=== PATIENT | female | born 1960 | race Caucasian/White ===

== ENCOUNTER 2024-04-02 10:56 | Outpatient (CLI) | payer MEDICARE, BC ==
[2024-04-02 12:42] LABS: #Basophils 0.04 10x3/uL (0.0-0.2); #Monocytes 0.83 10x3/uL (0.0-1.1); %Basophils 0.6 % (0.0-2.0); %Eosinophils 1.6 % (0.0-6.0); %Lymphocytes 15.2 % (18.0-47.0); %Monocytes 13.2 % (0.0-10.0); %Neutrophils 68.6 % (40.0-75.0); Hematocrit 42.3 % (34.9-44.5); Hemoglobin 14.1 g/dL (12.0-15.5); Mean Corpuscular HGB CONC 33.3 g/dL (32.0-36.0); Mean Corpuscular Hemoglobin 30.4 pg (27.0-33.0); Mean Corpuscular Volume 91.2 fL (81.6-98.3); Mean Platelet Volume 8.8 fL (7.4-10.4); Platelet Count 352 10x3/uL (150-450); RBC Distribution Width 13.3 % (11.5-14.5); Red Blood Cell (RBC) Count 4.64 10x6/uL (3.90-5.03); White Blood Cell (WBC) Count 6.27 10x3/uL (3.5-10.5)
[2024-04-02 13:01] LABS: Anion Gap 14 mmol/L (10-20); BUN (Urea Nitrogen) 10 mg/dL (9.8-20.1); Calc. Creatinine Clearance 0 mL/min (70-130); Calcium 9.4 mg/dL (7.8-10.44); Carbon Dioxide 25 mmol/L (23-31); Chloride 96 mmol/L (98-107); Estimated GFR 63; Glucose 134 mg/dL (80-115); Potassium 4.8 mmol/L (3.5-5.1); Sodium 130 mmol/L (136-145)
== END 2024-04-02 10:57 | disposition home or self-care (01) ==
LOC: CSHLAB 10:56
PROVIDERS: ATTEND Specialist
DX: Z01.818 Encounter for other preprocedural examination (principal); C50.911 Malignant neoplasm of unspecified site of right female breast
CPT/HCPCS: 71046; 80048; 85025; 93005; 93010

== ENCOUNTER 2024-04-22 09:47 | Day surgery (SDC) | payer MEDICARE, BC ==
[2024-04-18 13:50] VITALS: BMI 42.6
[2024-04-22] MEDS ORDERED: Acetaminophen 500 MG TAB ONE (10:06)
[2024-04-22] MEDS ORDERED: Ketorolac Tromethamine 30 MG (1 mL) VIAL ONE (10:06)
[2024-04-22] MEDS ORDERED: Bupivacaine/Epinephrine 0.25% 30 ML VIAL ONE (12:17)
[2024-04-22] MEDS ORDERED: Lidocaine 1% PF 5 ML VIAL ONE (12:25)
[2024-04-22] MEDS ORDERED: Ondansetron PF 4 MG/2 ML Vial ONE (12:25)
[2024-04-22] MEDS ORDERED: PROPOFOL 40 ML ONE (12:25)
[2024-04-22] MEDS ORDERED: Dexamethasone 4 mg/ml Vial ONE (12:25)
[2024-04-22] MEDS ORDERED: fentaNYL 50 mcg/mL 1 mL Vial ONE ×2 (12:31→13:33)
[2024-04-22] MEDS ORDERED: CEFAZOLIN 2 GM VIAL ONE (12:34)
[2024-04-22] MEDS ORDERED: PHENYLEPHRINE-NS 100 MCG/ML 10 ML SYRINGE ONE (12:54)
[2024-04-22] MEDS ORDERED: ePHEDrine Sulfate 50 MG/10 ML VIAL ONE (12:59)
[2024-04-22] MEDS ORDERED: HYDROcodone/Acetaminophen 5/325 mg Tablet ONE (14:18)
== END 2024-04-22 15:00 | disposition home or self-care (01) ==
LOC: CSHSDC 09:47
PROVIDERS: ATTEND Specialist
PROC: 0HBT0ZZ Excision of Right Breast, Open Approach (ICD-10-PCS; principal; 2024-04-22)
DX: D05.11 Intraductal carcinoma in situ of right breast (principal); N62 Hypertrophy of breast; R92.0 Mammographic microcalcification found on diagnostic imaging of breast; I10 Essential (primary) hypertension; E66.9 Obesity, unspecified; Z68.41 Body mass index [BMI] 40.0-44.9, adult; Z87.59 Personal history of other complications of pregnancy, childbirth and the puerperium; Z87.891 Personal history of nicotine dependence; Z90.710 Acquired absence of both cervix and uterus; Z90.89 Acquired absence of other organs; Z79.899 Other long term (current) drug therapy
CPT/HCPCS: 19301; J1100; J1885; J2405; J2704; J3010; 88307; 88341; 88342

== ENCOUNTER 2024-05-06 11:42 | Day surgery (SDC) | payer MEDICARE, BC ==
[2024-05-05 13:23] VITALS: BMI 41.9
[2024-05-06] MEDS ORDERED: Ketorolac Tromethamine 30 MG (1 mL) VIAL ONE (12:27)
[2024-05-06] MEDS ORDERED: Acetaminophen 500 MG TAB ONE (12:27)
[2024-05-06] MEDS ORDERED: Bupivacaine/Epinephrine 0.25% 30 ML VIAL ONE (13:50)
[2024-05-06] MEDS ORDERED: Lidocaine 2% PF 5 ML VIAL ONE (14:12)
[2024-05-06] MEDS ORDERED: PROPOFOL 20 ML ONE (14:13)
[2024-05-06] MEDS ORDERED: Ondansetron PF 4 MG/2 ML Vial ONE (14:14)
[2024-05-06] MEDS ORDERED: Dexamethasone 4 mg/ml Vial ONE (14:14)
[2024-05-06] MEDS ORDERED: CEFAZOLIN 2 GM VIAL ONE (14:38)
[2024-05-06] MEDS ORDERED: Fentanyl 100 MCG/2 ML VIAL ONE (15:09)
[2024-05-06] MEDS ORDERED: ePHEDrine Sulfate 50 MG/10 ML VIAL ONE (15:19)
[2024-05-06] MEDS ORDERED: oxyCODONE 5 MG TAB ONE (16:19)
== END 2024-05-06 17:15 | disposition home or self-care (01) ==
LOC: CSHSDC 11:42
PROVIDERS: ATTEND Specialist
PROC: 0HBT0ZZ Excision of Right Breast, Open Approach (ICD-10-PCS; principal; 2024-05-06)
DX: N60.91 Unspecified benign mammary dysplasia of right breast (principal); N60.11 Diffuse cystic mastopathy of right breast; I10 Essential (primary) hypertension; E07.9 Disorder of thyroid, unspecified; E66.01 Morbid (severe) obesity due to excess calories; Z68.41 Body mass index [BMI] 40.0-44.9, adult; Z87.59 Personal history of other complications of pregnancy, childbirth and the puerperium; Z87.891 Personal history of nicotine dependence; Z85.118 Personal history of other malignant neoplasm of bronchus and lung; Z90.710 Acquired absence of both cervix and uterus; Z79.890 Hormone replacement therapy; Z79.899 Other long term (current) drug therapy
CPT/HCPCS: 19301; C1713; J1100; J1885; J2405; J2704; J3010; 88307